=== PATIENT | male | born 1965 | race Caucasian/White ===

== ENCOUNTER 2021-07-30 06:48 | Emergency (ER) | payer SELFPAY ==
[~2021-07-30] VITALS: Ht 182.9 cm; Wt 99.8 kg
--- NOTE | 2021-07-30 07:00 | NUR ---
PT BIBS FOR C/O R THUMB INFECTION X 3 WEEKS. PT A/OX4. TOLERATING R/A WELL WITH NO SOB.
--- NOTE | 2021-07-30 07:03 | NUR ---
PT SEEN BY W[facility]
[2021-07-30] MEDS ORDERED: PIPERACILLIN /TAZOBACTAM 3.375 G VIAL IV ONE (07:07)
[2021-07-30] MEDS ORDERED: VANCOMYCIN 1 GM VIAL ONE (07:07)
--- NOTE | 2021-07-30 07:21 | NUR ---
PAGED [facility] FOR CONSULATE. ROCKET SCIENTIST WILL CALL BACK WITHIN 30 MINUTES.
--- NOTE | 2021-07-30 07:24 | NUR ---
[facility]AC #18G S/L; PATENT AND INTACT. BLOOD COLLECTED AND GIVEN TO LAB.
--- NOTE | 2021-07-30 07:25 | NUR ---
SAT TUTOR AT PT'S BEDSIDE
[2021-07-30] MEDS ORDERED: VANCOMYCIN 1 GM in IV D5W 250 ML IV ONE (07:30)
[2021-07-30] MEDS ORDERED: PIPERACILLIN /TAZOBACTAM 3.375 G in IV D5W 50 ML IV ONE (07:30)
[2021-07-30 07:43] LABS: BASOPHILS # (AUTO) 0.1 K/uL (0.0-0.2); BASOPHILS % (AUTO) 0.7 % (0.0-2.0); EOSINOPHILS % (AUTO) 3.9 % (0.0-6.0); HEMATOCRIT 34 % (39-51); HEMOGLOBIN 11.8 g/dL (13.5-17.5); LYMPHOCYTES # (AUTO) 2.2 K/uL (0.8-4.8); MEAN CORPUSCULAR HGB CONC 35 g/dl (31.0-36.0); MEAN CORPUSCULAR VOLUME 87 fL (80-96); MONOCYTES # (AUTO) 0.7 K/uL (0.1-1.30); MONOCYTES % (AUTO) 5.7 % (2.0-12.0); NEUTROPHILS # (AUTO) 8.6 K/uL (1.8-8.9); NEUTROPHILS % (AUTO) 71.7 % (43.0-81.0); PLATELET COUNT (AUTO) 309 K/uL (150-450); RED BLOOD CELL COUNT(AUTO) 3.88 MIL/uL (4.5-6.0)
[2021-07-30 07:53] LABS: CALCIUM, SERUM 8.9 mg/dL (8.5-10.1); CREATININE 1.1 mg/dL (0.6-1.3); POTASSIUM 3.9 mmol/L (3.5-5.1)
[2021-07-30 07:59] LABS: ALBUMIN 3.2 g/dL (3.4-5.0); BILIRUBIN,DIRECT 0.1 mg/dL (0.0-0.2); BILIRUBIN,TOTAL 0.3 mg/dL (0.2-1.0); TOTAL PROTEIN, SERUM 7.9 g/dL (6.4-8.2)
--- NOTE | 2021-07-30 08:04 | NUR ---
COVID ANTIGEN SWAB COLLECTED AND SENT TO LAB
--- NOTE | 2021-07-30 08:08 | NUR ---
Donell kelly in [facility] - 07/30/21 at 0813 by FANTASMA jessy zavala
--- NOTE | 2021-07-30 08:47 | NUR ---
paged epic for admission awaiting for MD to call back.
--- NOTE | 2021-07-30 08:55 | NUR ---
[facility] MD called back and speaking to Dr. Denton.
--- NOTE | 2021-07-30 09:26 | NUR ---
PAGED [facility] AGAIN DUE TO NOT RECIEVING A CALL BACK
--- NOTE | 2021-07-30 09:55 | NUR ---
CALLED [facility] FOR POSSIBLE TRANSFER AND WAS NOTIFIED THAT THEY ARE AT [place]
--- NOTE | 2021-07-30 10:08 | NUR ---
CALLED [facility] FOR POSSIBLE TRANSFER. THERE WAS NO ANSWER AND LEFT MESSAGE AWAITING FOR CALL BACK
--- NOTE | 2021-07-30 10:16 | NUR ---
[facility] CALLED BACK AND WAS NOTIFIED THAT THEY COULD NOT ACCOMODATE THE PT
--- NOTE | 2021-07-30 10:42 | NUR ---
Pt. would not provide social security and wants to leave AMA.
[2021-07-30] MEDS ORDERED: SULF1TAB48 PO (10:52)
[2021-07-30] MEDS ORDERED: CEPH500T PO (10:52)
--- NOTE | 2021-07-30 10:54 | NUR ---
PT WAS EXPLAINED THE RISKS OF LEAVING AGAINST MEDICAL ADVICE. PT WAS GIVEN A PRESCRIPTION OF ANTIBIOTICS AND WAS ADVICED TO FOLLOW UP WITH AN ORTHOPEDIST SOON POSSIBLE TO RECIEVED TREATMENT AND ADDITIONAL ANTIBIOTIC THERAPY.
[2021-07-30 11:06] VITALS: BP 132/83
== END 2021-07-30 10:54 | disposition left against medical advice (07) ==
LOC: ER 06:52
DX: M65.9 Synovitis and tenosynovitis, unspecified (principal); F11.10 Opioid abuse, uncomplicated; Z59.00 Homelessness unspecified; Z20.822 Contact with and (suspected) exposure to COVID-19
CPT/HCPCS: 36415; 71045; 73140; 80048; 80076; 83605; 84145; 85025; 85730; 87040 ×2; 87426; 96365; 96367; 99284; C9803; J2543; J3370; J7060